=== PATIENT | female | born 1940 | race Caucasian/White ===

== ENCOUNTER 2018-11-25 10:31 | Inpatient (IN) ==
--- NOTE | 2018-11-25 10:37 | Emergency Department Note ---
Addendum entered and electronically signed by Jayde Ovalle 11/25/18 15:42: At time of discharge, patient became hypoxic and desatted down to 84%. With this concern a CT of the chest with for concern for pulmonary embolism was performed. This showed most likely bronchitis or bronchiolitis inflammation, no evidence of pulmonary embolism. Due to the hypoxia and need for supplemental oxygen. Patient will be admitted this point in time for hypoxia. Patient has been started on azithromycin at this time. Original Note: Disposition Clinical Impression: Acute exacerbation of chronic obstructive airways disease Disposition: Home, Self-Care Condition: Fair Instructions: Chronic Obstructive Pulmonary Disease (ED) Reasons to Return/Additional Instructions: Please see her primary care provider in the next 3-5 days for reevaluation and further recommendations Please take medications as prescribed Please return every department if your symptoms began to worsen or progress continue feels though it is necessary to be re-seen. Prescriptions: Azithromycin [Azithromycin 6-Tab Pack] 250 mg PO PER PKG DI #6 tab PredniSONE [Deltasone] 40 mg PO DAILY 5 Days #10 tablet Referrals: Jim Rodrigues DO [Primary Care Provider] - Forms: ED Satisfaction Letter Time of Disposition: 13:31 General Adult HPI - General Stated complaint: JEAN CARLOS,Cough Time Seen by Provider: 11/25/18 10:36 Source: patient, family Mode of arrival: ambulatory Limitations: no limitations Nursing Notes Reviewed: Yes Vital Signs Reviewed: Yes - History of Present Illness HPI Narrative: Patient is a 78-year-old female presenting with difficulty breathing and cough. Patient states that 4 days ago she began to have cough with sputum production. She also notes difficulty breathing, notes that she is unable to walk more than 5 feet without becoming short of breath. She states this is unusual for her. Initially stable to walk around her home without difficulty. She is not on oxygen at home. She denies any chest pain, fevers or chills. She denies any abdominal pain, nausea or vomiting. Patient also has had some sinus congestion and post nasal drainage with the past week. She was recently placed on a new blood pressure medication. She states that she has a long-standing history of smoking. - Related Data Home Medications Medication Instructions Recorded Confirmed Aspirin [Adult Aspirin] 81 mg PO DAILY 11/25/18 11/25/18 Atorvastatin [Lipitor] 40 mg PO HS 11/25/18 11/25/18 Lisinopril [Zestril] 10 mg PO DAILY 11/25/18 11/25/18 Omeprazole [PriLOSEC] 20 mg PO DAILY 11/25/18 11/25/18 Previous Rx's Medication Instructions Recorded Azithromycin [Azithromycin 6-Tab 250 mg PO PER PKG DI #6 tab 11/25/18 Pack] PredniSONE [Deltasone] 40 mg PO DAILY 5 Days #10 tablet 11/25/18 Allergies Allergy/AdvReac Type Severity Reaction Status Date / Time No Known Allergies Allergy Verified 11/25/18 10:34 All systems ED: reviewed and negative except as stated. Review of Systems: As Per HPI Constitutional: Denies: fever, chills ENT ED: Reports: congestion Cardiovascular: Reports: dyspnea on exertion, orthopnea. Denies: chest pain, palpitations, edema, syncope, paroxysmal nocturnal dyspnea Respiratory: Reports: cough, dyspnea, wheezes, sputum production. Denies: hemoptysis Gastrointestinal: Denies: abdominal pain, vomiting, diarrhea, constipation, hematemesis, melena, hematochezia Genitourinary: Denies: dysuria Musculoskeletal: Denies: back pain Integumentary: Denies: rash Neurological: Denies: headache, weakness, numbness, paresthesias, confusion Endocrine: Denies: fatigue Physical Exam - General Limitations: no limitations General appearance: alert, in no apparent distress - Head Head exam: atraumatic, normocephalic, normal inspection - Eye Eye exam: Present: normal appearance, PERRL, EOMI - ENT ENT exam: normal exam, normal oropharynx, mucous membranes moist - Neck Neck exam: Present: normal inspection, full ROM, trachea midline - Chest Chest inspection: Present: normal inspection, symmetric chest wall rise. Absent: tenderness, rash - Respiratory Respiratory exam: Present: wheezes (generalized wheezing throughout, with crackles to the right base. ), prolonged expiratory phase, other (Patient is conversationally dyspneic) - Cardiovascular Cardiovascular exam: Present: normal rhythm, tachycardia, normal heart sounds - Abdominal Exam Abdominal exam: Present: soft, Non-Tender. Absent: tenderness, distention, gua rding, rebound, rigidity - Extremities Exam Extremities exam: Present: normal inspection, full ROM, normal capillary refill. Absent: tenderness, pedal edema - Expanded Lower Extremity Exam Neurovascular/Tendon exam: Absent: motor deficit, sensory deficit, tendon deficit - Back Exam Back exam: Present: normal inspection, full ROM. Absent: tenderness - Neurological Exam Neurological exam: Present: alert, oriented X3 - Psychiatric Psychiatric exam: Present: normal affect, normal mood - Skin Skin exam: Present: warm, dry, intact, normal color. Absent: rash Course Vital Signs Temperature 98.0 F 11/25/18 10:34 Pulse Rate 136 11/25/18 10:34 Respiratory Rate 24 11/25/18 10:34 Blood Pressure 179/87 11/25/18 10:34 O2 Sat by Pulse Oximetry 93 11/25/18 10:34 Temperature 98.0 F 11/25/18 11:21 Pulse Rate 137 11/25/18 13:43 Respiratory Rate 26 11/25/18 13:43 Blood Pressure 142/74 11/25/18 13:43 O2 Sat by Pulse Oximetry 91 11/25/18 13:43 Oxygen Delivery Oxygen Delivery Nasal Cannula Medical Decision Making - MDM Narrative Medical decision making narrative: Patient is 78-year-old female who is presenting with difficulty breathing and cough. Is been ongoing for the past few days. Patient has undiagnosed COPD however his chronic smoker. She has had cough with sputum production. No fevers or chills. She does not wear oxygen at home. On examination, there is diffuse wheezing as well as a few crackles. No history of heart failure. Patient tachycardic on examination. Did give patient 1 L fluid due to the tachycardia. EKG was performed which shows ventricular rate of 129, also appe ars to have right atrial enlargement, intervals are within normal limits, no ST elevation or depression. No ischemic changes are noted on exam EKG. Patient was started on 2 L nasal cannula as on arrival her oxygen saturation was 86%. On 2 L oxygen. Saturation is 98%. Patient was given 2 nebs 3. On reevaluation, patient states that she feels immediately better. Examination shows decreased wheezing throughout . CBC, BMP, and BNP are unremarkable. At this point in time, patient is been walked without desaturation. She was a symptomatically this time. Patient will be discharged home with most likely COPD exacerbation patient was also given steroid while in the ER. We will discharge the patient on azithromycin and prednisone. Patient is agreeable and will be discharged home at this point in time. Return precautions were discussed and she is agreeable. - Medical Records Medical records reviewed: Yes I reviewed the patient's medical records. - Lab Data Lab results reviewed: Yes I reviewed the patient's lab results. Result diagrams: 11/25/18 11:21 11/25/18 11:21 Lab Results 11/25/18 11/25/18 11/25/18 Range/Units 11:21 11:21 11:21 WBC 9.2 (4.3-11.1) K/mcL RBC 5.67 H (3.82-4.97) M/mcL Hgb 16.2 H (11.5-15.4) g/dL Hct 47.6 H (35.3-44.9) % MCV 84.0 (83.0-100.0) fL MCH 28.6 (28.0-33.3) pg MCHC 34.0 (31.6-35.5) g/dL RDW 13.9 (11.5-14.5) % Plt Count 206 (140-400) K/mcL MPV 9.3 L (9.4-12.4) fL Immature Gran % 0.8 (0-4) % Seg Neutrophils % 83.4 % Lymphocytes % 7.5 % Monocytes % 7.9 % Eosinophils % 0.1 % Basophils % 0.3 % Neutrophils # 7.7 (1.6-8.9) K/mcL Lymphocytes # 0.7 (0.6-4.6) K/mcL Monocytes # 0.7 (0.0-1.3) K/mcL Eosinophils # 0.0 (0.0-0.6) K/mcL Basophils # 0.0 (0.0-0.2) K/mcL Immature Plt Fraction 1.8 (1.1-6.1) % Sodium 134 L (136-145) mEq/L Potassium 4.3 (3.5-5.1) mEq/L Chloride 99 (98-107) mEq/L Carbon Dioxide 24 (23-29) mEq/L BUN 16 (8-23) mg/dL Creatinine 0.73 (0.60-1.20) mg/dL Est GFR ( Amer) > 60 (> 60) Est GFR (Non-Af Amer) > 60 (> 60) BUN/Creatinine Ratio 22 (6-26) Glucose 97 (70-105) mg/dL Calculated Osmolality 279 L (280-300) Calcium 9.9 (8.6-10.3) mg/dL B-Natriuretic Peptide 71 (Less than 100) pg/mL Urine Color (Yellow) Urine Clarity (Clear) Urine pH (5.0-8.0) pH Units Ur Specific [place] (1.010-1.025) Urine Protein (Neg-Trace) mg/dL Urine Glucose (UA) (Normal) mg/dL Urine Ketones (Negative) mg/dL Urine Blood (Negative) Urine Nitrite (Negative) Urine Bilirubin (Negative) Urine Urobilinogen (Normal) mg/dL Ur Leukocyte Esterase (Negative) Urine Microscopic RBC (0-3) per hpf Urine Microscopic WBC (0-3) per hpf Ur Squamous Epith Cells (None-Few) per lpf Urine Bacteria (None-Few) per hpf Hyaline Casts (None-Few) per lpf Ur Culture Indicated? (NO) 11/25/18 Range/Units 11:59 WBC (4.3-11.1) K/mcL RBC (3.82-4.97) M/mcL Hgb (11.5-15.4) g/dL Hct (35.3-44.9) % MCV (83.0-100.0) fL MCH (28.0-33.3) pg MCHC (31.6-35.5) g/dL RDW (11.5-14.5) % Plt Count (140-400) K/mcL MPV (9.4-12.4) fL Immature Gran % (0-4) % Seg Neutrophils % % Lymphocytes % % Monocytes % % Eosinophils % % Basophils % % Neutrophils # (1.6-8.9) K/mcL Lymphocytes # (0.6-4.6) K/mcL Monocytes # (0.0-1.3) K/mcL Eosinophils # (0.0-0.6) K/mcL Basophils # (0.0-0.2) K/mcL Immature Plt Fraction (1.1-6.1) % Sodium (136-145) mEq/L Potassium (3.5-5.1) mEq/L Chloride (98-107) mEq/L Carbon Dioxide (23-29) mEq/L BUN (8-23) mg/dL Creatinine (0.60-1.20) mg/dL Est GFR ( Amer) (> 60) Est GFR (Non-Af Amer) (> 60) BUN/Creatinine Ratio (6-26) Glucose (70-105) mg/dL Calculated Osmolality (280-300) Calcium (8.6-10.3) mg/dL B-Natriuretic Peptide (Less than 100) pg/mL Urine Color Yellow (Yellow) Urine Clarity Clear (Clear) Urine pH 6.0 (5.0-8.0) pH Units Ur Specific [place] 1.016 (1.010-1.025) Urine Protein 30 H (Neg-Trace) mg/dL Urine Glucose (UA) Normal (Normal) mg/dL Urine Ketones 15 H (Negative) mg/dL Urine Blood Trace H (Negative) Urine Nitrite Negative (Negative) Urine Bilirubin Negative (Negative) Urine Urobilinogen Normal (Normal) mg/dL Ur Leukocyte Esterase Negative (Negative) Urine Microscopic RBC 0-3 (0-3) per hpf Urine Microscopic WBC 0-3 (0-3) per hpf Ur Squamous Epith Cells Many H (None-Few) per lpf Urine Bacteria None Seen (None-Few) per hpf Hyaline Casts None Seen (None-Few) per lpf Ur Culture Indicated? NO (NO) - Radiology Data Radiology results reviewed: Yes I reviewed the patient's radiology results. Chest X-Ray 11/25/18 11:05 IMPRESSION: No acute process. D/ / Emery Madison MD / Emery Madison MD Interpreting Provider: Emery Madison MD Attestation Statement - Attestation Attestation: Patient was seen with resident physician. I reviewed the history, physical, assessment and plan, and agree with the findings. I also personally evaluated this patient and had [id number] time with this patient. 78-year-old female presents to the emergency Department chief complaint s hortness of breath cough and sputum production. On going for the last 4 days it has been getting progressively worse. Patient denies fevers or chills. No chest pain. Patient is a long-standing smoker, but says she does not have a formal diagnosis of COPD. She is not on home O2. She does not take breathing treatments. She is not had any swelling in the lower extremities or increase in weight over the last couple of days. Review of systems as above remainder negative. Physical exam vital signs are okay except for elevated heart rate and sinus tachycardia. ENT is unremarkable. Heart regular rhythm and rate. Lungs left side has expiratory wheezing. Right side has crackles with some mild wheezing as well. Abdomen is soft and nontender. Extremities are unremarkable with no swelling. Neurologically alert and oriented without focal deficits. Skin no obvious rashes. Psych normal. ED course we will do workup for influenza pneumonia and COPD. We will treat with steroids and breathing treatments. Likely we will send the patient home with antibiotics for bronchitis if she is negative for pneumonia. Her heart rate was also markedly elevated on arrival and we did some fluid resuscitation to see if we can get that improved. Unfortunately prior to discharge patient had several episodes where she became hypoxic on attempting to walk. She also had some tachycardia with this. She was borderline going home on initial presentation with this development we felt it was better to keep her in the hospital for breathing treatments and additional evaluation and treatment is in dicated. The hospital service notified. Patient was brought in for treatment. Agree with resident physician assessment and plan.
[2018-11-25] MEDS ORDERED: methylPREDNISolone 125 MG/2 ML VIAL IVP ONE (11:05)
[2018-11-25] MEDS ORDERED: 0.9 % Sodium Chloride 500 ML IVC ONE (11:06)
[2018-11-25] MEDS ORDERED: Ipratropium/Albuterol Neb 3 ML IH ONE (11:07)
[2018-11-25 11:33] LABS: Basophils % 0.3 %; Eosinophils % 0.1 %; Hematocrit 47.6 % (35.3-44.9); Hemoglobin 16.2 g/dL (11.5-15.4); Immature Granulocytes % 0.8 % (0-4); Immature Platelets 1.8 % (1.1-6.1); Lymphocytes # 0.7 K/mcL (0.6-4.6); Lymphocytes % 7.5 %; Mean Corpuscular Hemoglobin 28.6 pg (28.0-33.3); Mean Platelet Volume 9.3 fL (9.4-12.4); Monocytes # 0.7 K/mcL (0.0-1.3); Monocytes % 7.9 %; Neutrophils # 7.7 K/mcL (1.6-8.9); Platelet Count 206 K/mcL (140-400); Red Blood Count 5.67 M/mcL (3.82-4.97); Red Cell Distribution Width 13.9 % (11.5-14.5); Segmented Neutrophils % 83.4 %
[2018-11-25 11:54] LABS: BUN/Creatinine Ratio 22 (6-26); Blood Urea Nitrogen 16 mg/dL (8-23); Calcium 9.9 mg/dL (8.6-10.3); Carbon Dioxide 24 mEq/L (23-29); Chloride 99 mEq/L (98-107); Glucose 97 mg/dL (70-105); Osmolality,Calculated 279 (280-300); Potassium 4.3 mEq/L (3.5-5.1); Sodium 134 mEq/L (136-145); eGFR For Non-African Americans > 60 (> 60)
[2018-11-25 12:13] LABS: Bilirubin,Urine Negative (Negative); Blood,Urine Trace (Negative); Clarity,Urine Clear (Clear); Color,Urine Yellow (Yellow); Glucose,Urine (UA) Normal (Normal); Ketones,Urine 15 mg/dL (Negative); Leukocyte Esterase,Urine Negative (Negative); Nitrite,Urine Negative (Negative); Protein,Urine 30 mg/dL (Neg-Trace); Specific Gravity,Urine 1.016 (1.010-1.025); Urobilinogen,Urine Normal (Normal)
[2018-11-25 12:16] LABS: Bacteria,Urine None Seen per hpf (None-Few); Hyaline Casts,Urine None Seen per lpf (None-Few); RBC,Urine 0-3 per hpf (0-3); Squamous Epithelial Cell,Urine Many per lpf (None-Few); WBC,Urine 0-3 per hpf (0-3)
[2018-11-25] MEDS ORDERED: 0.9 % Sodium Chloride 500 ML ONE (12:17)
[2018-11-25] MEDS ORDERED: Isovue-370 500 ML INFUS..BTL IV ONE (13:53)
[2018-11-25] MEDS ORDERED: Azithromycin 250 MG TABLET PO ONE (15:44)
[2018-11-25] MEDS ORDERED: *HR* OxyCODONE Immed Rel 5 MG TABLET PO PRN (16:18)
[2018-11-25] MEDS ORDERED: Naloxone 0.4 MG/ML INJ IVP PRN (16:18)
[2018-11-25] MEDS ORDERED: traMADol 50 MG TABLET PO PRN (16:18)
[2018-11-25] MEDS ORDERED: Acetaminophen 325 MG TABLET PO PRN (16:18)
[2018-11-25] MEDS ORDERED: Albuterol 2.5 MG/3 ML NEBULIZER IH PRN (16:19)
[2018-11-25 16:36] LABS: Troponin I < 0.03 ng/mL (< 0.04)
--- NOTE | 2018-11-25 16:41 | Internal Med History&Physical ---
Date of Encounter: 11/25/18 Time of Encounter: 16:10 Internal Medicine - H&P: HPI Chief complaint: SOB Admitted From: Home History of present illness: Ms. Cervantes is a 78 year old female with history of CAD status post PCI in 1993, tobacco abuse, who presented to the ED with 5 day history of shortness of breath. Associated with cough without significant amount of sputum production. Denies any fever/chills but reports associated sinus headache. No sick contacts, travel history, or recent surgery or immobilization. Denies any chest pain, palpitation, orthopnea, PND, or leg swelling. No GI/ symptoms. No joint pain or rash. In the ED, she was afebrile, tachycardic in 130s, saturating 93% on room air. Later her SpO2 dropped to 86% and had CTA done which was negative for PE but did demonstrate findings compatible with bronchitis +/- bronchiolitis. Labwork otherwise shows normal white blood cell count, normal creatinine, and BNP. EKG shows sinus tachycardia without STT changes concerning for ischemia. Urinalysis was negative for nitrite or leukocyte esterase. Patient was given IV Solu-Medrol, bronchodilators, azithromycin, and admitted for further management. Past Med Surg Social Fam HX - Past Medical History Attestation: Yes The following information was validated with the patient. Medical history: GERD, hyperlipidemia, hypertension, myocardial infarction - Past Surgical History Surgical History: no surgical history - Social History Smoking Status: Current every day smoker Packs per day: 1 Alcohol use: none Drug use: none - Additional Family History Additional family history: No family history of premature CAD Internal Medicine - H&P: Meds Aspirin [Adult Aspirin] 81 mg PO DAILY 11/25/18 [History] Atorvastatin [Lipitor] 40 mg PO HS 11/25/18 [History] Azithromycin [Azithromycin 6-Tab Pack] 250 mg PO PER PKG DI #6 tab 11/25/18 [Rx] Lisinopril [Zestril] 10 mg PO DAILY 11/25/18 [History] Omeprazole [PriLOSEC] 20 mg PO DAILY 11/25/18 [History] PredniSONE [Deltasone] 40 mg PO DAILY 5 Days #10 tablet 11/25/18 [Rx] Allergy/AdvReac Type Severity Reaction Status Date / Time No Known Allergies Allergy Verified 11/25/18 10:34 All Systems PM: A 10-system review of systems was performed and is negative for pertinent findings except as documented above in the HPI. - Constitutional Vitals: Temp Pulse Resp BP Pulse Ox 98.0 F 112 22 152/69 94 11/25/18 11:21 11/25/18 16:32 11/25/18 16:32 11/25/18 16:32 11/25/18 16:32 Exam: General: Alert and oriented, not in acute distress. HEENT:EOMI, pupils equal, round and reactive. Cardiovascular:Normal S1 & S2, No JVD. Pulse regular and tachycardic Lungs: End expiratory wheezes in both lung delgado. Abdomen:Soft, non-tender, no rigidity. Extremities:No deformity or swelling Neurological:Normal cognition and motor skills. Non-focal Skin:Normal color, no rash, no lesions. Pulses:Carotid and radial pulses normal +2. Rest of the physical exam is non contributory Internal Med - H&P Results - Labs CBC & Chem 7: 11/25/18 11:21 11/25/18 11:21 Labs: Short CBC 11/25/18 Range/Units 11:21 WBC 9.2 (4.3-11.1) K/mcL Hgb 16.2 H (11.5-15.4) g/dL Hct 47.6 H (35.3-44.9) % Plt Count 206 (140-400) K/mcL Neutrophils # 7.7 (1.6-8.9) K/mcL BMP 11/25/18 11:21 Sodium 134 L Potassium 4.3 Chloride 99 Carbon Dioxide 24 BUN 16 Creatinine 0.73 Glucose 97 Calcium 9.9 Cardiac Enzymes 11/25/18 Range/Units 11:21 Troponin I < 0.03 (< 0.04) ng/mL Urine 11/25/18 Range/Units 11:59 Urine Color Yellow (Yellow) Urine Clarity Clear (Clear) Urine pH 6.0 (5.0-8.0) pH Units Ur Specific [place] 1.016 (1.010-1.025) Urine Protein 30 H (Neg-Trace) mg/dL Urine Glucose (UA) Normal (Normal) mg/dL - Impressions ITS Impressions Chest X-Ray 11/25/18 11:05 IMPRESSION: No acute process. D/ / Emery Madison MD / Emery Madison MD Interpreting Provider: Emery Madison MD Chest CTA 11/25/18 13:53 IMPRESSION: Limited evaluation the segmental and subsegmental pulmonary arterial branches. No central pulmonary embolism is detected. Bronchial wall thickening, with inflammatory/infectious micro nodules within the right upper lobe. Findings would suggest bronchitis and/or reactive airways disease, along with bronchiolitis. Indeterminate left adrenal mass measuring 3.2 cm. Nonemergent adrenal MRI (preferred) versus CT is recommended to better evaluate. 2.4 cm hypodense heterogeneous nodule within the right thyroid lobe. Nonemergent follow-up thyroid ultrasound also recommended. D/ / Ildefonso Osman MD / Ildefonso sOman MD Interpreting Provider: Ildefonso Osman MD - Assessment and plan (1) Acute exacerbation of chronic obstructive airways disease Current Visit: Yes Status: Acute Assessment and plan: Continue IV Solu-Medrol, bronchodilators, and azithromycin check RIP will need outpatient PFT smoking cessation emphasized (2) History of coronary artery disease Current Visit: No Status: Chronic Assessment and plan: No signs or symptoms of angina resume home meds (3) Tobacco abuse Current Visit: Yes Status: Chronic Assessment and plan: Smoking cessation emphasized nicotine replacement therapy (4) Thyroid nodule Current Visit: Yes Status: Suspected Assessment and plan: Incidental finding of 2.4 cm right thyroid nodule for US outpatient (5) Adrenal mass, left Current Visit: Yes Status: Suspected Assessment and plan: Incidental finding of indeterminate left adrenal mass measuring 3.2 cm for outpatient adrenal MRI (6) DVT prophylaxis Current Visit: Yes Status: Acute Assessment and plan: SQ Hep - Time Spent With Patient Total time spent is greater than 50% in coordination of care (as documented) at patient's floor/unit and/or counseling patient: 27 mins
[2018-11-25] MEDS: Nicotine 21 MG PATCH.TD24 TD SCH (18:04)
[2018-11-25] MEDS: MethylPREDNISolone 40 MG/ML VIAL IVP SCH (18:04)
[2018-11-25] MEDS: *HR* Heparin 5,000 UNIT/ML VIAL SQ SCH (18:04)
[2018-11-25] MEDS: Ipratropium/Albuterol Neb 3 ML IH SCH (19:58)
[2018-11-25] MEDS: Latanoprost 2.5 ML BOTTLE BOTH EYES SCH (21:53)
[2018-11-26] MEDS: Ipratropium/Albuterol Neb 3 ML IH SCH ×7 (00:34→23:38)
[2018-11-26] MEDS: MethylPREDNISolone 40 MG/ML VIAL IVP SCH ×3 (02:39→18:23)
[2018-11-26] MEDS: *HR* Heparin 5,000 UNIT/ML VIAL SQ SCH ×2 (05:43→18:27)
[2018-11-26] MEDS: Nicotine 21 MG PATCH.TD24 TD SCH (08:13)
[2018-11-26] MEDS: Aspirin Enteric Coated 81 MG Tablet PO SCH (08:13)
[2018-11-26 09:33] LABS: Basophils % 0.1 %; Hematocrit 44.1 % (35.3-44.9); Immature Granulocytes % 0.5 % (0-4); Lymphocytes # 0.4 K/mcL (0.6-4.6); Lymphocytes % 3.3 %; Mean Corpuscular HGB Conc 33.1 g/dL (31.6-35.5); Mean Corpuscular Hemoglobin 28.5 pg (28.0-33.3); Mean Platelet Volume 9.7 fL (9.4-12.4); Monocytes # 0.2 K/mcL (0.0-1.3); Monocytes % 1.5 %; Neutrophils # 10.8 K/mcL (1.6-8.9); Platelet Count 209 K/mcL (140-400); Red Blood Count 5.13 M/mcL (3.82-4.97); Red Cell Distribution Width 13.9 % (11.5-14.5); Segmented Neutrophils % 94.6 %
[2018-11-26 09:35] LABS: Hemoglobin 14.6 g/dL (11.5-15.4)
[2018-11-26 09:44] LABS: BUN/Creatinine Ratio 18 (6-26); Blood Urea Nitrogen 16 mg/dL (8-23); Calcium 9.5 mg/dL (8.6-10.3); Carbon Dioxide 22 mEq/L (23-29); Chloride 96 mEq/L (98-107); Glucose 203 mg/dL (70-105); Magnesium 1.9 mg/dL (1.6-2.6); Osmolality,Calculated 279 (280-300); Potassium 3.7 mEq/L (3.5-5.1); Sodium 131 mEq/L (136-145); eGFR For Non-African Americans > 60 (> 60)
--- NOTE | 2018-11-26 11:45 | Internal Med Progress Note ---
Hospitalist Progress Note - Encounter Date of Encounter: 11/26/18 Time of Encounter: 09:30 - Subjective Interval History: States that she feels significant better at rest but continues to have dyspnea when she moves. HR persistently elevated as well. No fever/chills, chest pain, palpitation, or worsening cough - Exam Vitals: Temp Pulse Resp BP Pulse Ox 97.9 F 131 14 111/87 100 11/26/18 11:23 11/26/18 11:23 11/26/18 11:23 11/26/18 11:23 11/26/18 11:23 Exam: General: Alert and oriented, not in acute distress. Cardiovascular:Normal S1 & S2, No JVD. Pulse regular and tachycardic Lungs: End expiratory wheezes in both lung delgado. Abdomen:Soft, non-tender, no rigidity. Extremities:No deformity or swelling Neurological:Normal cognition and motor skills. Non-focal - Assessment and Plan (1) Acute exacerbation of chronic obstructive airways disease Current Visit: Yes Status: Acute Assessment and Plan: Continue IV Solu-Medrol, bronchodilators, and azithromycin check RIP CTA had limited evaluation of the segmental and subsegmental pulmonary arterial branches will obtain LE doppler wean down O2 6 min walk test will need outpatient PFT smoking cessation emphasized (2) History of coronary artery disease Current Visit: No Status: Chronic Assessment and Plan: No signs or symptoms of angina resume home meds (3) Tobacco abuse Current Visit: Yes Status: Chronic Assessment and Plan: Smoking cessation emphasized nicotine replacement therapy (4) Thyroid nodule Current Visit: Yes Status: Suspected Assessment and Plan: Incidental finding of 2.4 cm right thyroid nodule for US outpatient given her tachycardia, will also obtain TSH (5) Adrenal mass, left Current Visit: Yes Status: Suspected Assessment and Plan: Incidental finding of indeterminate left adrenal mass measuring 3.2 cm for outpatient adrenal MRI (6) DVT prophylaxis Current Visit: Yes Status: Acute Assessment and Plan: SQ Hep - Time Spent with Patient Total time spent is greater than 50% in coordination of care (as documented) at patient's floor/unit and/or counseling patient: Plan of Care Discussed with: patient (family member at bedside) Internal Medicine: Result - Labs CBC & Chem 7: 11/26/18 08:51 11/26/18 08:51 Labs: Short CBC 11/26/18 Range/Units 08:51 WBC 11.4 H (4.3-11.1) K/mcL Hgb 14.6 D (11.5-15.4) g/dL Hct 44.1 (35.3-44.9) % Plt Count 209 (140-400) K/mcL Neutrophils # 10.8 H (1.6-8.9) K/mcL BMP 11/25/18 11/26/18 11:21 08:51 Sodium 134 L 131 L Potassium 4.3 3.7 Chloride 99 96 L Carbon Dioxide 24 22 L BUN 16 16 Creatinine 0.73 0.87 Glucose 97 203 H Calcium 9.9 9.5 Cardiac Enzymes 11/25/18 Range/Units 11:21 Troponin I < 0.03 (< 0.04) ng/mL Urine 11/25/18 Range/Units 11:59 Urine Color Yellow (Yellow) Urine Clarity Clear (Clear) Urine pH 6.0 (5.0-8.0) pH Units Ur Specific [place] 1.016 (1.010-1.025) Urine Protein 30 H (Neg-Trace) mg/dL Urine Glucose (UA) Normal (Normal) mg/dL - Impressions Impressions Chest X-Ray 11/25/18 11:05 IMPRESSION: No acute process. D/ / Emery Madison MD / Emery Madison MD Interpreting Provider: Emery Madison MD Chest CTA 11/25/18 13:53 IMPRESSION: Limited evaluation the segmental and subsegmental pulmonary arterial branches. No central pulmonary embolism is detected. Bronchial wall thickening, with inflammatory/infectious micro nodules within the right upper lobe. Findings would suggest bronchitis and/or reactive airways disease, along with bronchiolitis. Indeterminate left adrenal mass measuring 3.2 cm. Nonemergent adrenal MRI (preferred) versus CT is recommended to better evaluate. 2.4 cm hypodense heterogeneous nodule within the right thyroid lobe. Nonemergent follow-up thyroid ultrasound also recommended. D/ / Ildefonso Osman MD / Ildefonso Osman MD Interpreting Provider: Ildefonso Osman MD Consult Discharge Plan - Plan Referrals: Jim Rodrigues DO [Primary Care Provider] -
[2018-11-26 12:11] LABS: Thyroid Stimulating Hormone 0.371 mcIU/mL (0.340-5.600)
[2018-11-26] MEDS: Azithromycin 250 MG TABLET PO SCH (14:16)
[2018-11-26 17:18] LABS: Adenovirus Not Detected (Not Detect); Bordetella Pertussis Not Detected (Not Detect); Chlamydophila pneumoniae Not Detected (Not Detect); Coronavirus 229E Not Detected (Not Detect); Coronavirus HKU1 Not Detected (Not Detect); Coronavirus NL63 Not Detected (Not Detect); Coronavirus OC43 Not Detected (Not Detect); Human Metapneumovirus Not Detected (Not Detect); Human Rhinovirus/Enterovirus Not Detected (Not Detect); Influenza A Subtype 2009 H1 Not Detected (Not Detect); Influenza A Untypeable Not Detected (Not Detect); Influenza B Not Detected (Not Detect); Mycoplasma pneumoniae Not Detected (Not Detect); Parainfluenza Virus 1 Not Detected (Not Detect); Parainfluenza Virus 2 Not Detected (Not Detect); Parainfluenza Virus 3 Not Detected (Not Detect); Parainfluenza Virus 4 Not Detected (Not Detect); Respiratory Syncytial Virus DETECTED (Not Detect)
[2018-11-26] MEDS: Latanoprost 2.5 ML BOTTLE BOTH EYES SCH (22:04)
[2018-11-27] MEDS: MethylPREDNISolone 40 MG/ML VIAL IVP SCH ×3 (01:57→16:14)
[2018-11-27] MEDS: Ipratropium/Albuterol Neb 3 ML IH SCH ×2 (04:12→07:42)
[2018-11-27 05:29] LABS: Basophils % 0.1 %; Hematocrit 44.3 % (35.3-44.9); Immature Granulocytes % 0.5 % (0-4); Lymphocytes # 0.3 K/mcL (0.6-4.6); Mean Corpuscular HGB Conc 33.9 g/dL (31.6-35.5); Mean Corpuscular Hemoglobin 28.8 pg (28.0-33.3); Monocytes # 0.2 K/mcL (0.0-1.3); Monocytes % 1.4 %; Neutrophils # 16.5 K/mcL (1.6-8.9); Platelet Count 204 K/mcL (140-400); Red Blood Count 5.21 M/mcL (3.82-4.97); Red Cell Distribution Width 13.9 % (11.5-14.5)
[2018-11-27 05:50] LABS: BUN/Creatinine Ratio 25 (6-26); Blood Urea Nitrogen 18 mg/dL (8-23); Calcium 9.3 mg/dL (8.6-10.3); Carbon Dioxide 25 mEq/L (23-29); Chloride 97 mEq/L (98-107); Glucose 148 mg/dL (70-105); Osmolality,Calculated 279 (280-300); Potassium 3.9 mEq/L (3.5-5.1); Sodium 132 mEq/L (136-145); eGFR For Non-African Americans > 60 (> 60)
[2018-11-27] MEDS: *HR* Heparin 5,000 UNIT/ML VIAL SQ SCH ×2 (06:12→16:14)
[2018-11-27] MEDS: Nicotine 21 MG PATCH.TD24 TD SCH (08:57)
[2018-11-27] MEDS: Aspirin Enteric Coated 81 MG Tablet PO SCH (08:57)
[2018-11-27] MEDS ORDERED: Isovue-370 500 ML INFUS..BTL IV ONE (10:27)
--- NOTE | 2018-11-27 10:31 | Internal Med Progress Note ---
Hospitalist Progress Note - Encounter Date of Encounter: 11/27/18 Time of Encounter: 08:45 - Subjective Interval History: O2 sat dropped upon ambulation yesterday, requiring 4L of O2 for a prolonged period of time. Continues to be tachycardic. Only other complaint is inability to cough out phlegm. Otherwise, no fever/chills, chest pain, palpitation, or worsening cough - Exam Vitals: Temp Pulse Resp BP Pulse Ox 97.8 F 124 19 150/72 95 11/27/18 07:20 11/27/18 07:20 11/27/18 07:42 11/27/18 07:20 11/27/18 09:10 Exam: General: Alert and oriented, not in acute distress. Cardiovascular:Normal S1 & S2, No JVD. Pulse regular and tachycardic Lungs: End expiratory wheezes in both lung delgado. Abdomen:Soft, non-tender, no rigidity. Extremities:No deformity or swelling Neurological:Normal cognition and motor skills. Non-focal - Assessment and Plan (1) Acute exacerbation of chronic obstructive airways disease Current Visit: Yes Status: Acute Assessment and Plan: slowly improving on IV Solu-Medrol, bronchodilators, and azithromycin RSV +ve persistently tachycardic and hypoxic with exertion, although she states she is subjectively feeling better. Lung exam also improved initial CTA had limited evaluation of the segmental and subsegmental pulmonary arterial branches. LE doppler -ve yesterday repeat CTA will need outpatient PFT smoking cessation emphasized (2) Tachycardia Current Visit: Yes Status: Acute Assessment and Plan: persistent tachycardia despite tx for COPD. Lung exam also improving ?SVT, will repeat EKG and administer adenosine if it shows SVT if not, may have to repeat CTA as the initial one showed limited evaluation of the segmental pulmonary arteries telemetry (3) History of coronary artery disease Current Visit: No Status: Chronic Assessment and Plan: No signs or symptoms of angina resume home meds (4) Tobacco abuse Current Visit: Yes Status: Chronic Assessment and Plan: Smoking cessation emphasized nicotine replacement therapy (5) Thyroid nodule Current Visit: Yes Status: Suspected Assessment and Plan: Incidental finding of 2.4 cm right thyroid nodule for US outpatient TSH normal (6) Adrenal mass, left Current Visit: Yes Status: Suspected Assessment and Plan: Incidental finding of indeterminate left adrenal mass measuring 3.2 cm for outpatient adrenal MRI (7) DVT prophylaxis Current Visit: Yes Status: Acute Assessment and Plan: SQ Hep - Time Spent with Patient Total time spent is greater than 50% in coordination of care (as documented) at patient's floor/unit and/or counseling patient: Plan of Care Discussed with: patient (RN) Internal Medicine: Result - Labs CBC & Chem 7: 11/27/18 04:33 11/27/18 04:33 Labs: Short CBC 11/27/18 Range/Units 04:33 WBC 17.2 H D (4.3-11.1) K/mcL Hgb 15.0 (11.5-15.4) g/dL Hct 44.3 (35.3-44.9) % Plt Count 204 (140-400) K/mcL Neutrophils # 16.5 H (1.6-8.9) K/mcL BMP 11/26/18 11/27/18 08:51 04:33 Sodium 131 L 132 L Potassium 3.7 3.9 Chloride 96 L 97 L Carbon Dioxide 22 L 25 BUN 16 18 Creatinine 0.87 0.71 Glucose 203 H 148 H Calcium 9.5 9.3 Consult Discharge Plan - Plan Referrals: Jim Rodrigues DO [Primary Care Provider] -
[2018-11-27] MEDS: Levalbuterol Neb 1.25 MG/3 ML IH SCH ×4 (11:34→23:30)
[2018-11-27] MEDS: Sennosides/Docusate Sodium TABLET PO SCH (12:04)
[2018-11-27] MEDS: Azithromycin 250 MG TABLET PO SCH (14:23)
--- NOTE | 2018-11-27 14:47 | Electrocardiograph Report ---
[address] [place], [place] [address] Test Date: 2018-11-25 Pat Name: Martha Cervantes Department: [id number] Room: 2NE23 Gender: F Medical Staff Services Coordinator: : 1940 Requested By: Jayde Ovalle Order Number: [id number] Reading MD: Chencho Rosado Measurements Intervals [place] Rate: 129 P: 88 MS: 152 QRS: -83 QRSD: 84 T: 84 QT: 306 QTc: 449 Interpretive Statements Sinus tachycardia Left axis deviation Consider right atrial enlargement Poor R wave progression Inferior infarct, old Electronically Signed On 11-27-2018 14:45:16 EST by Chencho Rosado
--- NOTE | 2018-11-27 15:29 | Electrocardiograph Report ---
[address] [place], [place] [address] Test Date: 2018-11-27 Pat Name: Martha Cervantes Department: 111 Room: 2NE23 Gender: F Loop Tacker: : 1940 Requested By: Jacques Wang Order Number: [id number] Reading MD: Og Tubbs Measurements Intervals [place] Rate: 131 P: 72 CT: 148 QRS: -18 QRSD: 97 T: 84 QT: 302 QTc: 379 Interpretive Statements SINUS TACHYCARDIA WITH OCCASIONAL VENTRICULAR PREMATURE COMPLEXES POSSIBLE ANTERIOR MYOCARDIAL INFARCTION, OF INDETERMINATE AGE Electronically Signed On 11-27-2018 15:27:50 EST by Og Tubbs
[2018-11-27] MEDS: Latanoprost 2.5 ML BOTTLE BOTH EYES SCH (21:16)
[2018-11-28] MEDS: MethylPREDNISolone 40 MG/ML VIAL IVP SCH ×2 (03:00→17:49)
[2018-11-28] MEDS: Levalbuterol Neb 1.25 MG/3 ML IH SCH ×6 (04:04→23:56)
[2018-11-28] MEDS: *HR* Heparin 5,000 UNIT/ML VIAL SQ SCH ×2 (05:09→17:47)
[2018-11-28 06:17] LABS: Basophils % 0.1 %; Hematocrit 44.6 % (35.3-44.9); Immature Granulocytes % 0.7 % (0-4); Lymphocytes # 0.4 K/mcL (0.6-4.6); Lymphocytes % 2.4 %; Mean Corpuscular HGB Conc 33.6 g/dL (31.6-35.5); Mean Corpuscular Hemoglobin 28.7 pg (28.0-33.3); Mean Corpuscular Volume 85.3 fL (83.0-100.0); Mean Platelet Volume 9.9 fL (9.4-12.4); Monocytes # 0.3 K/mcL (0.0-1.3); Monocytes % 2.1 %; Neutrophils # 15.2 K/mcL (1.6-8.9); Platelet Count 224 K/mcL (140-400); Red Blood Count 5.23 M/mcL (3.82-4.97); Red Cell Distribution Width 14.4 % (11.5-14.5); Segmented Neutrophils % 94.7 %
[2018-11-28 06:36] LABS: BUN/Creatinine Ratio 26 (6-26); Blood Urea Nitrogen 19 mg/dL (8-23); Calcium 9.3 mg/dL (8.6-10.3); Carbon Dioxide 29 mEq/L (23-29); Chloride 95 mEq/L (98-107); Glucose 129 mg/dL (70-105); Osmolality,Calculated 276 (280-300); Potassium 4.1 mEq/L (3.5-5.1); Sodium 131 mEq/L (136-145); eGFR For Non-African Americans > 60 (> 60)
[2018-11-28] MEDS: Sennosides/Docusate Sodium TABLET PO SCH (07:42)
[2018-11-28] MEDS: Nicotine 21 MG PATCH.TD24 TD SCH (07:42)
[2018-11-28] MEDS: Aspirin Enteric Coated 81 MG Tablet PO SCH (07:42)
[2018-11-28] MEDS: Ipratropium Neb 0.5 MG NEBULIZER IH SCH ×4 (11:34→23:56)
[2018-11-28] MEDS: levoFLOXacin 500 MG TABLET PO SCH (12:32)
--- NOTE | 2018-11-28 15:37 | Internal Med Progress Note ---
Hospitalist Progress Note - Encounter Date of Encounter: 11/28/18 Time of Encounter: 08:30 - Subjective Interval History: patient was seen and examined at bedside. reports that she cannot feel as though her heart is racing. her respiratory status has some what improved as compared to yesterday. denies N/v/D has no pain, tolerating PO diet - Exam Vitals: Temp Pulse Resp BP Pulse Ox 97.5 F L 103 18 141/65 97 11/28/18 10:52 11/28/18 10:52 11/28/18 11:35 11/28/18 10:52 11/28/18 11:35 Exam: General: Alert and oriented, not in acute distress. Cardiovascular:Normal S1 & S2, No JVD. Pulse regular and tachycardic Lungs: End expiratory wheezes in both lung delgado. decreased breath sounds bilaterally Abdomen:Soft, non-tender, no rigidity. Extremities:moving all extremities, no calf tenderness Neurological: No focal deficit - Assessment and Plan (1) Acute exacerbation of chronic obstructive airways disease Current Visit: Yes Status: Acute Assessment and Plan: slowly improving on IV Solu-Medrol, bronchodilators, and Abx Abx changed to levaquin - EKG with RSV +ve persistently tachycardic and hypoxic with exertion, although she states she is subjectively feeling better. Lung exam also improved We will continue with Atrovent and Xopenex Sputum cultures and urine antigens pending will need outpatient PFT smoking cessation emphasized (2) Tachycardia Current Visit: Yes Status: Acute Assessment and Plan: persistent tachycardia despite tx for COPD. Lung exam also improving EKG on 11/27/18- SINUS TACHYCARDIA WITH OCCASIONAL VENTRICULAR PREMATURE COMPLEXES POSSIBLE ANTERIOR MYOCARDIAL INFARCTION, OF INDETERMINATE AGE CTA negative for PE x 2 cardizem dosage increased echocardiogram pending (3) History of coronary artery disease Current Visit: No Status: Chronic Assessment and Plan: No signs or symptoms of angina resume home meds (4) Tobacco abuse Current Visit: Yes Status: Chronic Assessment and Plan: Smoking cessation emphasized nicotine replacement therapy (5) Thyroid nodule Current Visit: Yes Status: Suspected Assessment and Plan: Incidental finding of 2.4 cm right thyroid nodule for US outpatient TSH normal (6) Adrenal mass, left Current Visit: Yes Status: Suspected Assessment and Plan: Incidental finding of indeterminate left adrenal mass measuring 3.2 cm for outpatient adrenal MRI Cortisol 5.4 Plasma metanephrines in process (7) DVT prophylaxis Current Visit: Yes Status: Acute Assessment and Plan: SQ Hep - Time Spent with Patient Total time spent is greater than 50% in coordination of care (as documented) at patient's floor/unit and/or counseling patient: Internal Medicine: Result - Labs CBC & Chem 7: 11/28/18 05:28 11/28/18 05:28 Labs: Short CBC 11/28/18 Range/Units 05:28 WBC 16.0 H (4.3-11.1) K/mcL Hgb 15.0 (11.5-15.4) g/dL Hct 44.6 (35.3-44.9) % Plt Count 224 (140-400) K/mcL Neutrophils # 15.2 H (1.6-8.9) K/mcL BMP 11/28/18 05:28 Sodium 131 L Potassium 4.1 Chloride 95 L Carbon Dioxide 29 BUN 19 Creatinine 0.72 Glucose 129 H Calcium 9.3 Consult Discharge Plan - Plan Referrals: Jim Rodrigues DO [Primary Care Provider] -
[2018-11-28] MEDS ORDERED: Perflutren Lipid Microsphere 1.3 ML in 0.9 % Sodium Chloride 8.7 ML IVP ONE (18:58)
[2018-11-28] MEDS: Latanoprost 2.5 ML BOTTLE BOTH EYES SCH (22:44)
[2018-11-29] MEDS: Ipratropium Neb 0.5 MG NEBULIZER IH SCH ×6 (04:36→23:20)
[2018-11-29] MEDS: Levalbuterol Neb 1.25 MG/3 ML IH SCH ×3 (04:36→11:25)
[2018-11-29 05:17] LABS: Hematocrit 43.2 % (35.3-44.9); Hemoglobin 14.5 g/dL (11.5-15.4); Mean Corpuscular HGB Conc 33.6 g/dL (31.6-35.5); Mean Corpuscular Hemoglobin 28.5 pg (28.0-33.3); Mean Platelet Volume 9.5 fL (9.4-12.4); Platelet Count 224 K/mcL (140-400); Red Blood Count 5.08 M/mcL (3.82-4.97)
[2018-11-29] MEDS: MethylPREDNISolone 40 MG/ML VIAL IVP SCH ×2 (05:30→17:12)
[2018-11-29] MEDS: *HR* Heparin 5,000 UNIT/ML VIAL SQ SCH ×2 (05:31→17:12)
[2018-11-29 05:34] LABS: BUN/Creatinine Ratio 34 (6-26); Blood Urea Nitrogen 27 mg/dL (8-23); Carbon Dioxide 26 mEq/L (23-29); Chloride 98 mEq/L (98-107); Glucose 128 mg/dL (70-105); Osmolality,Calculated 281 (280-300); Potassium 4.7 mEq/L (3.5-5.1); Sodium 132 mEq/L (136-145); eGFR For Non-African Americans > 60 (> 60)
[2018-11-29 06:07] LABS: ABG Base Excess 3 mEq/L (-2 to 3); ABG HCO3 28 mEq/L (21-27); ABG Oxygen Saturation 95 % (95-98); ABG PCO2 41 mmHg (35-45); ABG PH 7.44 pH Units (7.32-7.45); ABG PO2 71 mmHg (85-104); ABG TCO2 29 mEq/L (20-26)
[2018-11-29] MEDS: levoFLOXacin 500 MG TABLET PO SCH (07:53)
[2018-11-29] MEDS: Sennosides/Docusate Sodium TABLET PO SCH (07:54)
[2018-11-29] MEDS: Aspirin Enteric Coated 81 MG Tablet PO SCH (07:54)
[2018-11-29] MEDS: Nicotine 21 MG PATCH.TD24 TD SCH (07:54)
--- NOTE | 2018-11-29 11:27 | Cardiology Consult Note ---
<Larry Roberts Chasity - Last Filed: 11/29/18 12:17> Date of Encounter: 11/29/18 Time of Encounter: 11:24 Assessment and Plan (1) Sinus tachycardia Current Visit: Yes Status: Acute Sinus tachycardia in the setting of COPD exacerbation and RSV. HR at bedside is low 100s. 12 hr tele AVG HR 91, SR. Does appear that heart rate has improved since admission. ECG on admission HR was 130. Currently on Xopenex. Recommend switching to non beta agonist. On short acting cardizem 60mg Q8 hours. TTE EF preserved, mild LVDD. Anticipate HR will continue to improve as respiratory status improves. Will discuss and review with Dr. Kraft. (2) Tobacco abuse Current Visit: Yes Status: Chronic Smoking cessation counseling given. (3) History of coronary artery disease Current Visit: No Status: Chronic Hx of CAD and PCI x 3 in 1993. Denies chest pain. TTE EF preserved. Continue ASA, Statin, CCB. Discussion w patient/family: The assessment and plan as outlined above was discussed with the patient and/or family members who expressed understanding and agreement. All questions were answered. Thank you for involving us in the care of your patient. Please call with any questions. I will discuss all the above with Dr. Kraft and make changes as necessary. History of Present Illness Consult date: 11/29/18 Consult reason: sinus tach History of present illness: Ms. Cervantes is a 78 year old female with PMH of CAD s/p PCIx3 in 1993, tobacco abuse, who presented to the ED with 5 day history of shortness of breath. Associated with cough without significant amount of sputum production. Denies any fever/chills but reports associated sinus headache. Denies any chest pain, palpitation, orthopnea, PND, or leg swelling. Sinus tach on admission--130s, saturating 93% on room air. Later her SpO2 dropped to 86% and had CTA done which was negative for PE but did demonstrate findings compatible with bronchitis +/- bronchiolitis. Pt tested positive for RSV. Currently being treated for RSV and COPD exacerbation. Pt has been noted to be persistently tachycardic--sinus, and cardiology consulted for further recs. TTE EF preserved, mild LVDD. 12 hr tele AVG HR 91, SR. HR at bedside low 100s. Past Med Surg Social Fam HX - Past Medical History Medical history: GERD, hyperlipidemia, hypertension, myocardial infarction - Past Surgical History Surgical History: no surgical history - Social History Smoking Status: Current every day smoker Packs per day: 1 Alcohol use: none Drug use: none Medications and Allergies Aspirin [Adult Aspirin] 81 mg PO DAILY 11/25/18 [History] Atorvastatin [Lipitor] 40 mg PO HS 11/25/18 [History] Azithromycin [Azithromycin 6-Tab Pack] 250 mg PO PER PKG DI #6 tab 11/25/18 [Rx] Lisinopril [Zestril] 10 mg PO DAILY 11/25/18 [History] Omeprazole [PriLOSEC] 20 mg PO DAILY 11/25/18 [History] PredniSONE [Deltasone] 40 mg PO DAILY 5 Days #10 tablet 11/25/18 [Rx] Travoprost [Travatan Z] 1 drop BOTH EYES HS 11/25/18 [History] Allergy/AdvReac Type Severity Reaction Status Date / Time No Known Allergies Allergy Verified 11/25/18 10:34 All Systems Review: The remainder of the systems were reviewed and are negative - Cardiovascular Cardiovascular: dyspnea at rest, dyspnea on exertion - Respiratory Respiratory: cough, dyspnea Physical Examination Vital Signs, Last 4 Hours Resp Pulse Ox 11/29/18 07:49 16 96 Vital Signs Temp Pulse Resp BP Pulse Ox 11/29/18 07:49 16 96 11/29/18 07:22 97.9 F 89 20 133/69 94 11/29/18 05:15 97.4 F L 87 20 134/67 93 11/29/18 04:36 16 92 11/28/18 23:56 16 172/85 95 11/28/18 21:45 94 11/28/18 20:45 97.5 F L 107 19 172/85 98 11/28/18 20:34 18 94 11/28/18 17:45 107 18 156/79 96 11/28/18 15:41 14 94 11/28/18 11:35 18 97 Intake and Output 11/28/18 11/29/18 11/29/18 23:59 07:59 15:59 Intake Total 0 / 0 0 / 0 Output Total 0 / 0 0 / 0 Balance 0 / 0 0 / 0 Intake: Oral 0 / 0 0 / 0 Output: Urine 0 / 0 0 / 0 Other: # Voids 1 Weight 71.3 kg Patient Weight 11/29/18 23:59 Weight 71.3 kg General: Conversant, No Apparent Distress HEENT: Atraumatic, Normocephaly, Mucus Membranes Moist Neck: No JVD, Normal carotid pulses Cardiac: Reg Rate and Rhythm, Normal S1 and S2, No Murmur Lungs: Normal Breath Sounds, No Wheeze, Rales, Rhonchi Neuro: Alert and responsive, No focal deficits noted Abdomen: Soft, Non-Tender Skin: No rashes noted on visualized skin Musculoskeletal: No Chest Wall Tenderness Extremities: No Clubbing, No Cyanosis, No Edema, Normal Pulses Results 11/29/18 04:54 11/29/18 04:54 Lab Results 11/29/18 11/29/18 04:54 04:54 WBC 11.1 Hgb 14.5 Hct 43.2 Plt Count 224 Sodium 132 L Potassium 4.7 Chloride 98 Carbon Dioxide 26 BUN 27 H Creatinine 0.80 Glucose 128 H Calcium 9.0 Short CBC 11/29/18 Range/Units 04:54 WBC 11.1 (4.3-11.1) K/mcL Hgb 14.5 (11.5-15.4) g/dL Hct 43.2 (35.3-44.9) % Plt Count 224 (140-400) K/mcL BMP 11/29/18 Range/Units 04:54 Sodium 132 L (136-145) mEq/L Potassium 4.7 (3.5-5.1) mEq/L Chloride 98 (98-107) mEq/L Carbon Dioxide 26 (23-29) mEq/L BUN 27 H (8-23) mg/dL Creatinine 0.80 (0.60-1.20) mg/dL Glucose 128 H (70-105) mg/dL Calcium 9.0 (8.6-10.3) mg/dL Impressions Echocardiogram 11/28/18 10:13 Impressions: Technically sub-optimal due to poor echocardiographic windows. LVEF 70%. Normal LV chamber size, wall thickness and function. Mild left ventricular diastolic dysfunction. Grossly normal right ventricular size. Function is normal. Unable to estimate RVSP due to lack of TR jet. No obvious significant valvular dysfunction. Left Ventricular Wall Motion: Rest Echo Findings All wall segments showed normal motion. Findings: Study Quality * Technically sub-optimal due to poor echocardiographic windows. ECG Findings * Sinus tachycardia. Left Ventricle * LVEF 70%. * Normal LV chamber size, wall thickness and function. * Mild left ventricular diastolic dysfunction. Right Ventricle * Grossly normal right ventricular size. Function is normal. Left Atrium * Normal left atrial size. Right Atrium * Not well visualized. Grossly normal right atrial size. Aortic Valve * Aortic valve not well visualized. * Grossly, leaflets appear mildly calcified in some views. * No aortic regurgitation. * No aortic stenosis. Mitral Valve * Mitral valve not well visualized. * Mildly thickened mitral valve leaflets. * No mitral regurgitation. * No mitral stenosis. Tricuspid Valve * Normal tricuspid valve structure and function. * No tricuspid regurgitation. * Unable to estimate RVSP due to lack of TR jet. Pulmonic Valve * Pulmonic valve is not well visualized. * No pulmonic regurgitation. Aorta * Normally sized aortic root. Pericardium * The pericardium appears normal. IVC * Normal IVC dimensions and inspiratory collapse. Pulmonary Artery * Normal visualized portions of the main pulmonary artery. Active Medications Acetaminophen (Tylenol) 650 mg PO Q6HR PRN PRN Reason: Mild Pain/Fever Stop: 05/27/19 16:19 Aspirin (Aspirin Ec) 81 mg PO DAILY [facility] Stop: 05/28/19 09:01 Last Admin: 11/29/18 07:54 Dose: 81 mg Atorvastatin Calcium (Lipitor) 40 mg PO HS [facility] Stop: 05/27/19 21:01 Last Admin: 11/28/18 21:44 Dose: 40 mg Diltiazem HCl (Cardizem) 60 mg PO Q8HR ZEB Stop: 05/30/19 16:01 Last Admin: 11/29/18 07:53 Dose: 60 mg Guaifenesin (Mucinex) 600 mg PO BID [facility] Stop: 05/29/19 10:31 Last Admin: 11/29/18 07:53 Dose: 600 mg Heparin Sodium (Porcine) (Heparin) 5,000 unit SQ Q12HCO ZEB Stop: 05/27/19 18:01 Last Admin: 11/29/18 05:31 Dose: 5,000 unit Ipratropium [place] (Atrovent Neb) 0.5 mg IH [id number] ZEB Stop: 05/30/19 12:01 Last Admin: 11/29/18 11:25 Dose: 0.5 mg Latanoprost (Xalatan) 1 drop BOTH EYES HS [facility] Stop: 05/27/19 21:01 Last Admin: 11/28/18 22:44 Dose: 1 drop Levalbuterol HCl (Xopenex) 1.25 mg IH [id number] ZEB Stop: 05/29/19 12:01 Last Admin: 11/29/18 11:25 Dose: 1.25 mg Levofloxacin (Levaquin) 500 mg PO DAILY ZEB; Protocol Stop: 05/30/19 10:16 Last Admin: 11/29/18 07:53 Dose: 500 mg Lisinopril (Zestril) 10 mg PO DAILY ZEB; Protocol Stop: 05/28/19 09:01 Last Admin: 11/29/18 07:54 Dose: 10 mg Methylprednisolone (Solu-Medrol) 40 mg IVP Q12HR ZEB Stop: 05/30/19 18:01 Last Admin: 11/29/18 05:30 Dose: 40 mg Naloxone HCl (Narcan) 0.4 mg IVP Q2MIN PRN PRN Reason: SEE COMMENTS Stop: 05/27/19 16:19 Nicotine (Nicoderm) 21 mg TD DAILY ZEB; Protocol Stop: 05/27/19 16:46 Last Admin: 11/29/18 07:54 Dose: 21 mg Omeprazole (Prilosec) 20 mg PO DAILY ZEB; Protocol Stop: 05/28/19 09:01 Last Admin: 11/29/18 07:53 Dose: 20 mg Oxycodone HCl (Roxicodone) 10 mg PO Q6HR PRN PRN Reason: Severe Pain Stop: 05/27/19 16:19 Polyethylene Glycol (Miralax) 17 gm PO DAILY ZEB Stop: 05/29/19 09:31 Last Admin: 11/29/18 07:54 Dose: 17 gm Senna/Docusate Sodium (Senna Plus) 1 each PO DAILY ZEB; Protocol Stop: 05/29/19 09:31 Last Admin: 11/29/18 07:54 Dose: 1 each Sodium Chloride ([place] Nasal [place]) 2 spray NS QID ZEB Stop: 05/31/19 13:01 Tramadol HCl (Ultram) 50 mg PO Q6HR PRN PRN Reason: Moderate Pain Stop: 05/27/19 16:19 - Imaging and Cardiology Echo: report reviewed - EKG Interpretation EKG results cardiology: personally reviewed (Sinus tach, rate 130), other (12 hr tele AVG HR 91, SR.) Consult Discharge Plan - Plan Referrals: Jim Rodrigues, [Primary Care Provider] - <Suresh Kraft - Last Filed: 11/29/18 13:57> Date of Encounter: 11/29/18 - Attending Attestation I have personally performed a face to face evaluation on this patient. I have reviewed and agree with the documented findings and care plan as documented by the QUALITY WORKER. History and Exam by me shows: 78 y/o F admitted for COPD exacerbation, and noted to be tachycardic. EKG shows sinus tachycardia.CTA reported to be negative for PE Recommend discontinuation of all B agonist incuding levalbuterol. Thanks, Suresh Kraft MD FAC Assessment and Plan Discussion w patient/family: The assessment and plan as outlined above was discussed with the patient and/or family members who expressed understanding and agreement. All questions were answered. Thank you for involving us in the care of your patient. Please call with any questions. History of Present Illness History of present illness: Ms. Cervantes is a 78 year old female All Systems Review: The remainder of the systems were reviewed and are negative Physical Examination Vital Signs, Last 4 Hours Resp Pulse Ox 11/29/18 12:31 97 11/29/18 11:25 16 91 Results 11/29/18 04:54 11/29/18 04:54 Lab Results 11/29/18 11/29/18 04:54 04:54 WBC 11.1 Hgb 14.5 Hct 43.2 Plt Count 224 Sodium 132 L Potassium 4.7 Chloride 98 Carbon Dioxide 26 BUN 27 H Creatinine 0.80 Glucose 128 H Calcium 9.0
--- NOTE | 2018-11-29 14:30 | Internal Med Progress Note ---
Hospitalist Progress Note - Encounter Date of Encounter: 11/29/18 Time of Encounter: 08:00 - Subjective Interval History: patient was seen and examined at bedside. she is feeling better and her respiratory status has improved. she reports that she is coughing up more "junk". she denies fever, chills, N/v/D, CP or palpitations - Exam Vitals: Temp Pulse Resp BP Pulse Ox 97.9 F 89 16 133/69 97 11/29/18 07:22 11/29/18 07:22 11/29/18 11:25 11/29/18 07:22 11/29/18 12:31 Exam: General: Alert and oriented, not in acute distress. Cardiovascular:RRR s and s2, no murmurs heard Lungs: End expiratory wheezes in both lung delgado ( improved) . decreased breath sounds bilaterally Abdomen:Soft, non-tender, no rigidity. Extremities:moving all extremities, no calf tenderness Neurological: No focal deficit - Assessment and Plan (1) Acute exacerbation of chronic obstructive airways disease Current Visit: Yes Status: Acute Assessment and Plan: slowly improving on IV Solu-Medrol, bronchodilators, and Abx levaquin Discontinued - EKG without prolonged Qt will start her on zithromax and continue for 5 days as OP RSV +ve persistently tachycardic ( improved) and hypoxic with exertion, although she states she is subjectively feeling better. Lung exam also improved We will continue with Atrovent sputum cx in process urine antigens negative will need outpatient PFT smoking cessation emphasized (2) Tachycardia Current Visit: Yes Status: Acute Assessment and Plan: persistent tachycardia most likely from RSV infection and COPD exacerbation is improving cardiology consulted and recs appreciated D/C xopenex will continue cardizem for BP/HR control EKG on 11/27/18- SINUS TACHYCARDIA WITH OCCASIONAL VENTRICULAR PREMATURE COMPLEXES POSSIBLE ANTERIOR MYOCARDIAL INFARCTION, OF INDETERMINATE AGE CTA negative for PE x 2 TTE: Impressions: Technically sub-optimal due to poor echocardiographic windows. LVEF 70%. Normal LV chamber size, wall thickness and function. Mild left ventricular diastolic dysfunction. Grossly normal right ventricular size. Function is normal. Unable to estimate RVSP due to lack of TR jet. No obvious significant valvular dysfunction. (3) History of coronary artery disease Current Visit: No Status: Chronic Assessment and Plan: Hx of CAD and PCI x 3 in 1993. Denies chest pain. TTE EF preserved. Continue ASA, Statin, CCB. (4) Tobacco abuse Current Visit: Yes Status: Chronic Assessment and Plan: Smoking cessation emphasized nicotine replacement therapy (5) Thyroid nodule Current Visit: Yes Status: Suspected Assessment and Plan: Incidental finding of 2.4 cm right thyroid nodule for US outpatient TSH normal (6) Adrenal mass, left Current Visit: Yes Status: Suspected Assessment and Plan: Incidental finding of indeterminate left adrenal mass measuring 3.2 cm for outpatient adrenal MRI Cortisol 5.4 Plasma metanephrines in process (7) DVT prophylaxis Current Visit: Yes Status: Acute Assessment and Plan: SQ Hep - Time Spent with Patient Total time spent is greater than 50% in coordination of care (as documented) at patient's floor/unit and/or counseling patient: Internal Medicine: Result - Labs CBC & Chem 7: 11/29/18 04:54 11/29/18 04:54 Labs: Short CBC 11/29/18 Range/Units 04:54 WBC 11.1 (4.3-11.1) K/mcL Hgb 14.5 (11.5-15.4) g/dL Hct 43.2 (35.3-44.9) % Plt Count 224 (140-400) K/mcL BMP 11/29/18 04:54 Sodium 132 L Potassium 4.7 Chloride 98 Carbon Dioxide 26 BUN 27 H Creatinine 0.80 Glucose 128 H Calcium 9.0 - ABG Interpretation ABG results: ABG ABG pH 7.44 pH Units (7.32-7.45) 11/29/18 06:04 ABG pCO2 41 mmHg (35-45) 11/29/18 06:04 ABG pO2 71 mmHg (85-104) L 11/29/18 06:04 ABG O2 Saturation 95 % (95-98) 11/29/18 06:04 - Impressions Impressions Echocardiogram 11/28/18 10:13 Impressions: Technically sub-optimal due to poor echocardiographic windows. LVEF 70%. Normal LV chamber size, wall thickness and function. Mild left ventricular diastolic dysfunction. Grossly normal right ventricular size. Function is normal. Unable to estimate RVSP due to lack of TR jet. No obvious significant valvular dysfunction. Left Ventricular Wall Motion: Rest Echo Findings All wall segments showed normal motion. Findings: Study Quality * Technically sub-optimal due to poor echocardiographic windows. ECG Findings * Sinus tachycardia. Left Ventricle * LVEF 70%. * Normal LV chamber size, wall thickness and function. * Mild left ventricular diastolic dysfunction. Right Ventricle * Grossly normal right ventricular size. Function is normal. Left Atrium * Normal left atrial size. Right Atrium * Not well visualized. Grossly normal right atrial size. Aortic Valve * Aortic valve not well visualized. * Grossly, leaflets appear mildly calcified in some views. * No aortic regurgitation. * No aortic stenosis. Mitral Valve * Mitral valve not well visualized. * Mildly thickened mitral valve leaflets. * No mitral regurgitation. * No mitral stenosis. Tricuspid Valve * Normal tricuspid valve structure and function. * No tricuspid regurgitation. * Unable to estimate RVSP due to lack of TR jet. Pulmonic Valve * Pulmonic valve is not well visualized. * No pulmonic regurgitation. Aorta * Normally sized aortic root. Pericardium * The pericardium appears normal. IVC * Normal IVC dimensions and inspiratory collapse. Pulmonary Artery * Normal visualized portions of the main pulmonary artery. Consult Discharge Plan - Plan Referrals: Jim Rodrigues DO [Primary Care Provider] -
[2018-11-29] MEDS ORDERED: Diltiazem CD (24hr) 120 MG CAPSULE PO ONE (14:34)
[2018-11-29] MEDS: Saline Nasal Spray 44 ML BOTTLE NS SCH ×3 (15:07→21:00)
[2018-11-29] MEDS: Latanoprost 2.5 ML BOTTLE BOTH EYES SCH (21:01)
[2018-11-30] MEDS: Ipratropium Neb 0.5 MG NEBULIZER IH SCH ×3 (03:44→11:22)
[2018-11-30] MEDS: MethylPREDNISolone 40 MG/ML VIAL IVP SCH (06:30)
[2018-11-30] MEDS: *HR* Heparin 5,000 UNIT/ML VIAL SQ SCH (06:30)
[2018-11-30 07:24] VITALS: BP 153/76
[2018-11-30] MEDS: Aspirin Enteric Coated 81 MG Tablet PO SCH (08:36)
[2018-11-30] MEDS: Sennosides/Docusate Sodium TABLET PO SCH (08:37)
[2018-11-30] MEDS: Nicotine 21 MG PATCH.TD24 TD SCH (08:37)
[2018-11-30] MEDS: Saline Nasal Spray 44 ML BOTTLE NS SCH (08:37)
[2018-11-30] MEDS ORDERED: Diltiazem CD (24hr) 180 MG CAPSULE PO SCH (09:00)
[2018-11-30] MEDS ORDERED: Azithromycin 250 MG TABLET PO SCH (09:00)
--- NOTE | 2018-11-30 09:57 | Discharge Summary ---
- NOTES TO OUTPATIENT PROVIDER Notes to Outpatient Provider: follow up with pulmonology, follow up with PCP Orders not resulted at time of discharge: Pending orders 11/27/18 10:30 Culture,Sputum with Gram Stain [RM] Routine 11/28/18 08:23 Metanephrines, Plasma (Free) Stat Date of Encounter: 11/30/18 Time of Encounter: 09:41 - Discharge Diagnosis (1) Acute exacerbation of chronic obstructive airways disease Priority: Primary Status: Acute (2) Tachycardia Priority: Secondary Status: Acute (3) History of coronary artery disease Priority: Secondary Status: Chronic (4) Tobacco abuse Priority: Secondary Status: Chronic (5) Thyroid nodule Priority: Secondary Status: Suspected (6) Adrenal mass, left Priority: Secondary Status: Suspected (7) DVT prophylaxis Priority: Secondary Status: Acute Hospital course: "Ms. Cervantes is a 78 year old female with history of CAD status post PCI in 1993, tobacco abuse, who presented to the ED with 5 day history of shortness of breath. Associated with cough without significant amount of sputum production. Denies any fever/chills but reports associated sinus headache. No sick contacts, travel history, or recent surgery or immobilization. Denies any chest pain, palpitation, orthopnea, PND, or leg swelling. No GI/ symptoms. No joint pain or rash. In the ED, she was afebrile, tachycardic in 130s, saturating 93% on room air. Later her SpO2 dropped to 86% and had CTA done which was negative for PE but did demonstrate findings compatible with bronchitis +/- bronchiolitis. Labwork otherwise shows normal white blood cell count, normal creatinine, and BNP. EKG shows sinus tachycardia without STT changes concerning for ischemia. Urinalysis was negative for nitrite or leuko cyte esterase. Patient was given IV Solu-Medrol, bronchodilators, azithromycin, and admitted for further management." patient presented with above presentation. respiratory panel showed RSV infectio n. her respiratory status and tachycardia improved with above therapy. CTA was reformed which was negative for PE however it showed thyroid and adrenal mass. cortisol adn TSH WNL. plasma metanephrimes in process. she was given scripts to have abdominal MRI and thyroid US [facility] thyroid and adrenal mass. she understands that she will need further work up and close monitoring. she was provided with inhalers/nebulizers and was given appointment with pulmonary team in 1 week to evaluate her her as she is a chronic smoker and has never been formally diagnosed with COPD. she was provided with steroid taper to finish a 14 day course total ( received 5 days of IV steroids in patient) she remained tachycardic while hospitalized cardiology consulted and recommended that the tachycardia was most likely secondary to respiratory status. tachycardia resolved as respiratory status improved on 11/29/17 and she was stable fro discharge on 11/30. 6 minute walk test was performed by the nursing staff and she did not qualify for home O2. cardiology was consulted agreed with addition of cardizem for BP control and history of CAD and PCI x 3 in 1993. BP cough kit Rx provided for the juaquin to have BP log and record BP 2 x perday to take to PCP for medication adjustment echocardiogram performed results below. PCP appointment was provided by the nursing staff to follow up TTE: Technically sub-optimal due to poor echocardiographic windows. LVEF 70%. Normal LV chamber size, wall thickness and function. Mild left ventricular diastolic dysfunction. Grossly normal right ventricular size. Function is normal. Unable to estimate RVSP due to lack of TR jet. No obvious significant valvular dysfunction. Ct chest: IMPRESSION: No central or segmental pulmonary embolus. No acute pulmonary process. Indeterminate left adrenal lesion and right thyroid lobe lesion. Recommend MRI and thyroid ultrasound as previously noted. Time spent discussing smoking cessation with patient: more than 10 minutes - Time Spent with Patient Total time spent providing and/or coordinating discharge services: Greater than 30 minutes (45) - Discharge Medications Prescriptions: Ipratropium/Albuterol Neb [Duoneb] 3 ml IH Q6HR PRN #30 vial.neb PRN Reason: Dyspnea Blood Pressure Test Kit [Blood Pressure Kit] 1 each MC DAILY #1 kit Budesonide/Formoterol 160/4.5 [Symbicort 160/4.5] 1 puff IH BIDR #1 hfa.aer.ad Diltiazem CD (24hr) [Cardizem CD] 180 mg PO DAILY #30 cap.er.24h Guaifenesin [Guaifenesin ER] 600 mg PO BID #14 tab.er.12h Nebulizer and Compressor [Ombra Compressor System] 1 each MC PRN PRN #1 each PRN Reason: Dyspnea Nicotine Patch [Nicoderm] 21 mg TD DAILY #30 patch.td24 predniSONE [PredniSONE] 10 mg PO TAPER #21 tablet Home Medications: Aspirin [Adult Aspirin] 81 mg PO DAILY 11/25/18 [History] Atorvastatin [Lipitor] 40 mg PO HS 11/25/18 [History] Lisinopril [Zestril] 10 mg PO DAILY 11/25/18 [History] Omeprazole [PriLOSEC] 20 mg PO DAILY 11/25/18 [History] Travoprost [Travatan Z] 1 drop BOTH EYES HS 11/25/18 [History] Blood Pressure Test Kit [Blood Pressure Kit] 1 each MC DAILY #1 kit 11/30/18 [Rx] Budesonide/Formoterol 160/4.5 [Symbicort 160/4.5] 1 puff IH BIDR #1 hfa.aer.ad 11/30/18 [Rx] Diltiazem CD (24hr) [Cardizem CD] 180 mg PO DAILY #30 cap.er.24h 11/30/18 [Rx] Guaifenesin [Guaifenesin ER] 600 mg PO BID #14 tab.er.12h 11/30/18 [Rx] Ipratropium/Albuterol Neb [Duoneb] 3 ml IH Q6HR PRN #30 vial.neb 11/30/18 [Rx] Nebulizer and Compressor [Ombra Compressor System] 1 each MC PRN PRN #1 each 11/30/18 [Rx] Nicotine Patch [Nicoderm] 21 mg TD DAILY #30 patch.td24 11/30/18 [Rx] predniSONE [PredniSONE] 10 mg PO TAPER #21 tablet 11/30/18 [Rx] Allergies/Adverse Reactions: Allergy/AdvReac Type Severity Reaction Status Date / Time No Known Allergies Allergy Verified 11/25/18 10:34 Date of admission: 11/27/18 16:09 Primary care physician: Jim Rodrigues Consults: 11/29/18 09:57 Consult to Cardiology [CONS] Routine Comment: Consulting Provider: Cardiology [facility] Reason for Consult: continues to be tachycardic despite improvement in respiratory status, ruled out hypothyroidism, ruled out PE Call Completed: Yes - Constitutional Vitals: Temp Pulse Resp BP Pulse Ox 97.3 F L 91 16 153/76 92 11/30/18 07:22 11/30/18 07:22 11/30/18 07:37 11/30/18 07:22 11/30/18 07:37 Exam: General: Alert and oriented, not in acute distress. Cardiovascular:RRR s and s2, no murmurs heard Lungs: minimal occasional wheezing in the anterior chest . decreased breath sounds bilaterally Abdomen:Soft, non-tender, no rigidity. Extremities:moving all extremities, no calf tenderness Neurological: No focal deficit - Patient Status Disposition: Home, Self-Care Condition: Fair Functional capacity at discharge: independent ambulation Overall status at discharge: patient is progressing back to baseline - Ambulatory Orders Ambulatory Orders: US thyroid [US] Time Frame: 1 Week, Facility: [facility], Location: [facility] [place] MR angio abdomen wo/w con [MR] Time Frame: 1 Week, Facility: [facility], Location: [facility] [place] - Discharge Instructions Instructions: Diltiazem (By mouth), Prednisone (By mouth), Guaifenesin (By mouth), Nicotine (Absorbed through the skin), Ipratropium/Albuterol (By breathing), Budesonide/Formoterol (By breathing), Chronic Obstructive Pulmonary Disease (DC), How to Use a Nebulizer (DC), Cigarette Smoking and Your Health, Telephone Operator Chief (GEN) Follow Up With: Jim Rodrigues DO [Primary Care Provider] - 12/07/18 10:20 am Evelia Bourne MD [Partnered Physician] - 12/01/18 10:00 am Additional Instructions: You need a MRI of the abdomen to assess mass of left adrenal gland in 1 week. Prescription given to you. We called [facility] to schedule this. If insurance approves, then after that all you should need to do is call them back and give them a time to schedule it for. You need an US OF THYROID to assess thyroid nodule in 1 week. Prescription given to you. We called [facility] [employer] to schedule this. If insurance approves, then after that all you should need to do is call them back and give them a time to schedule it for. Blood pressure cuff prescription given to you. Take a log of BP'S and write them down to show your physician 2x/day. Nebulizer machine prescription given to you. Take breathing treatment when wheezing or short of breath. - Diet and Activity Activity: increase activity as tolerated Diet: other (cardiac )
--- NOTE | 2018-11-30 10:08 | Cardiology Progress Note ---
Date of Encounter: 11/30/18 Time of Encounter: 10:05 Assessment and Plan (1) Sinus tachycardia Current Visit: Yes Status: Acute Sinus tachycardia in the setting of COPD exacerbation and RSV. HR at bedside is 90s. 12 hr tele AVG HR 95, SR. Does appear that heart rate has improved since admission. ECG on admission HR was 130. On cardizem cd 180mg daily. Of note, from cardiac perspective TTE EF preserved, mild LVDD. Cardiology signing off. Reconsult PRN. (2) Tobacco abuse Current Visit: Yes Status: Chronic Smoking cessation counseling given. (3) History of coronary artery disease Current Visit: No Status: Chronic Hx of CAD and PCI x 3 in 1993. Denies chest pain. TTE EF preserved. Continue ASA, Statin, CCB. Discussion w patient/family: The assessment and plan as outlined above was discussed with the patient and/or family members who expressed understanding and agreement. All questions were answered. Thank you for involving us in the care of your patient. Please call [facility] any questions. I will discuss all the above with Dr. Kraft and make changes as necessary. Subjective Principal diagnosis: COPD Interval history: Denies acute complaints this AM. 12 hr tele AVG HR 95, SR. HR 90s at bedside. Objective Vital Signs, Last 4 Hours Temp Pulse Resp BP Pulse Ox 11/30/18 07:37 16 92 11/30/18 07:22 97.3 F L 91 16 153/76 99 Vital Signs Temp Pulse Resp BP Pulse Ox 11/30/18 07:37 16 92 11/30/18 07:22 97.3 F L 91 16 153/76 99 11/30/18 04:00 97.8 F 95 15 145/74 90 11/30/18 03:45 12 94 11/29/18 23:20 18 103 11/29/18 20:05 18 103 11/29/18 20:00 97.4 F L 104 15 136/73 100 11/29/18 15:55 97.7 F 96 19 133/69 100 11/29/18 15:42 16 96 11/29/18 12:31 97 11/29/18 11:25 16 91 Intake and Output 11/29/18 11/30/18 11/30/18 23:59 07:59 15:59 Intake Total 360 / 360 0 / 0 Balance 360 / 360 0 / 0 Intake: Oral 360 / 360 0 / 0 Other: Meal Dinner Breakfast Percent of Meal Consumed 45% 100% # Voids 1 Weight 72.3 kg Patient Weight 11/30/18 23:59 Weight 72.3 kg General: Conversant, No Apparent Distress HEENT: Atraumatic, Normocephaly, Mucus Membranes Moist Neck: No JVD, Normal carotid pulses Cardiac: Reg Rate and Rhythm, Normal S1 and S2, No Murmur Lungs: Other (diminished) Neuro: Alert and responsive, No focal deficits noted Abdomen: Soft, Non-Tender Skin: No rashes noted on visualized skin Musculoskeletal: No Chest Wall Tenderness Extremities: No Clubbing, No Cyanosis, No Edema, Normal Pulses Results 11/29/18 04:54 11/29/18 04:54 Impressions Echocardiogram 11/28/18 10:13 Impressions: Technically sub-optimal due to poor echocardiographic windows. LVEF 70%. Normal LV chamber size, wall thickness and function. Mild left ventricular diastolic dysfunction. Grossly normal right ventricular size. Function is normal. Unable to estimate RVSP due to lack of TR jet. No obvious significant valvular dysfunction. Left Ventricular Wall Motion: Rest Echo Findings All wall segments showed normal motion. Findings: Study Quality * Technically sub-optimal due to poor echocardiographic windows. ECG Findings * Sinus tachycardia. Left Ventricle * LVEF 70%. * Normal LV chamber size, wall thickness and function. * Mild left ventricular diastolic dysfunction. Right Ventricle * Grossly normal right ventricular size. Function is normal. Left Atrium * Normal left atrial size. Right Atrium * Not well visualized. Grossly normal right atrial size. Aortic Valve * Aortic valve not well visualized. * Grossly, leaflets appear mildly calcified in some views. * No aortic regurgitation. * No aortic stenosis. Mitral Valve * Mitral valve not well visualized. * Mildly thickened mitral valve leaflets. * No mitral regurgitation. * No mitral stenosis. Tricuspid Valve * Normal tricuspid valve structure and function. * No tricuspid regurgitation. * Unable to estimate RVSP due to lack of TR jet. Pulmonic Valve * Pulmonic valve is not well visualized. * No pulmonic regurgitation. Aorta * Normally sized aortic root. Pericardium * The pericardium appears normal. IVC * Normal IVC dimensions and inspiratory collapse. Pulmonary Artery * Normal visualized portions of the main pulmonary artery. Active Medications Acetaminophen (Tylenol) 650 mg PO Q6HR PRN PRN Reason: Mild Pain/Fever Stop: 05/27/19 16:19 Aspirin (Aspirin Ec) 81 mg PO DAILY ZEB Stop: 05/28/19 09:01 Last Admin: 11/30/18 08:36 Dose: 81 mg Atorvastatin Calcium (Lipitor) 40 mg PO HS ZEB Stop: 05/27/19 21:01 Last Admin: 11/29/18 21:00 Dose: 40 mg Azithromycin (Zithromax) 500 mg PO DAILY ZEB Stop: 06/01/19 09:01 Last Admin: 11/30/18 08:36 Dose: 500 mg Diltiazem HCl (Cardizem Cd) 180 mg PO DAILY ZEB Stop: 06/01/19 09:01 Last Admin: 11/30/18 08:37 Dose: 180 mg Guaifenesin (Mucinex) 600 mg PO BID [facility] Stop: 05/29/19 10:31 Last Admin: 11/30/18 08:37 Dose: 600 mg Heparin Sodium (Porcine) (Heparin) 5,000 unit SQ Q12HCO ZEB Stop: 05/27/19 18:01 Last Admin: 11/30/18 06:30 Dose: 5,000 unit Ipratropium [place] (Atrovent Neb) 0.5 mg IH [id number] ZEB Stop: 05/30/19 12:01 Last Admin: 11/30/18 07:39 Dose: 0.5 mg Latanoprost (Xalatan) 1 drop BOTH EYES HS [facility] Stop: 05/27/19 21:01 Last Admin: 11/29/18 21:01 Dose: 1 drop Lisinopril (Zestril) 10 mg PO DAILY [facility]; Protocol Stop: 05/28/19 09:01 Last Admin: 11/30/18 08:36 Dose: 10 mg Methylprednisolone (Solu-Medrol) 40 mg IVP Q12HR ZEB Stop: 05/30/19 18:01 Last Admin: 11/30/18 06:30 Dose: 40 mg Naloxone HCl (Narcan) 0.4 mg IVP Q2MIN PRN PRN Reason: SEE COMMENTS Stop: 05/27/19 16:19 Nicotine (Nicoderm) 21 mg TD DAILY ZEB; Protocol Stop: 05/27/19 16:46 Last Admin: 11/30/18 08:37 Dose: 21 mg Omeprazole (Prilosec) 20 mg PO DAILY ZEB; Protocol Stop: 05/28/19 09:01 Last Admin: 11/30/18 08:36 Dose: 20 mg Oxycodone HCl (Roxicodone) 10 mg PO Q6HR PRN PRN Reason: Severe Pain Stop: 05/27/19 16:19 Polyethylene Glycol (Miralax) 17 gm PO DAILY ZEB Stop: 05/29/19 09:31 Last Admin: 11/30/18 08:37 Dose: 17 gm Senna/Docusate Sodium (Senna Plus) 1 each PO DAILY ZEB; Protocol Stop: 05/29/19 09:31 Last Admin: 11/30/18 08:37 Dose: 1 each Sodium Chloride ([place] Nasal [place]) 2 spray NS QID ZEB Stop: 05/31/19 13:01 Last Admin: 11/30/18 08:37 Dose: 2 spray Tramadol HCl (Ultram) 50 mg PO Q6HR PRN PRN Reason: Moderate Pain Stop: 05/27/19 16:19 - Imaging and Cardiology Echo: report reviewed - EKG Interpretation EKG results cardiology: other (12 hr tele AVG HR 95, SR) Consult Discharge Plan - Plan Referrals: Jim Rodrigues DO [Primary Care Provider] - 12/07/18 10:20 am Prescriptions: Ipratropium/Albuterol Neb [Duoneb] 3 ml IH Q6HR PRN #30 vial.neb PRN Reason: Dyspnea Blood Pressure Test Kit [Blood Pressure Kit] 1 each MC DAILY #1 kit Budesonide/Formoterol 160/4.5 [Symbicort 160/4.5] 1 puff IH BIDR #1 hfa.aer.ad Diltiazem CD (24hr) [Cardizem CD] 180 mg PO DAILY #30 cap.er.24h Guaifenesin [Guaifenesin ER] 600 mg PO BID #14 tab.er.12h Nebulizer and Compressor [Ombra Compressor System] 1 each MC PRN PRN #1 each PRN Reason: Dyspnea Nicotine Patch [Nicoderm] 21 mg TD DAILY #30 patch.td24 predniSONE [PredniSONE] 10 mg PO TAPER #21 tablet
[2018-11-30 10:17] LABS: Metanephrine, Plasma 0.15 nmol/L (0.00-0.49)
== END 2018-11-30 14:04 | disposition home or self-care (01) | DRG 192 ==
LOC: EMEROOARM 10:31 → 2NENU 10:31 → SUATTDRO 16:22 → 2NENU 17:33 → SUATTDRO 11-27 16:09
PROVIDERS: ADMIT Internal Medicine; ATTEND Internal Medicine